=== PATIENT | male | born 1995 | race Two or more races ===

== ENCOUNTER 2019-07-01 02:04 | Emergency (ER) | payer OTHER ==
[~2019-07-01] VITALS: Ht 193 cm; Wt 127.0 kg
--- NOTE | 2019-07-01 02:11 | NUR ---
PT BIB [facility] WITH A C/O ABD PAIN WITH N/V. PT WAS TRIAGED AND TAKEN TO ER2. PT WAS PLACED ON THE MONITOR AND CONTINUOUS PULSE OX. PT IS GROANING AND SCREAMING WITH PAIN. PT STATED THAT HE HAD A HX OF ULCERS, BUT IS NO LONGER TAKING MEDICATION FOR IT.
[2019-07-01] MEDS ORDERED: ONDANSETRON HCL/PF 4 MG/2 ML VIAL ONE (02:15)
--- NOTE | 2019-07-01 02:24 | NUR ---
PT REC'D MEDICATION ORDERED.
[2019-07-01] MEDS ORDERED: HYDROMORPHONE 1 MG/1 ML DISP.SYRIN ONE (02:28)
[2019-07-01 02:29] LABS: BASOPHILS # (AUTO) 0.1 /CMM (0.0-0.2); BASOPHILS % (AUTO) 0.7 % (0.0-2.0); EOSINOPHILS % (AUTO) 0.2 % (0.0-6.0); HEMATOCRIT 42 % (39-51); LYMPHOCYTES # (AUTO) 1.5 /CMM (0.8-4.8); LYMPHOCYTES % (AUTO) 15.3 % (20.0-44.0); MEAN CORPUSCULAR HGB CONC 34 g/dl (31.0-36.0); MEAN CORPUSCULAR VOLUME 85 fL (80-96); MONOCYTES # (AUTO) 0.4 /CMM (0.1-1.30); MONOCYTES % (AUTO) 3.7 % (2.0-12.0); NEUTROPHILS # (AUTO) 7.9 /CMM (1.8-8.9); NEUTROPHILS % (AUTO) 80.1 % (43.0-81.0); PLATELET COUNT (AUTO) 278 /CMM (150-450); RED BLOOD CELL COUNT(AUTO) 4.89 MIL/uL (4.5-6.0); WHITE BLOOD COUNT (AUTO) 9.9 K/uL (4.3-11.0)
[2019-07-01] MEDS ORDERED: ONDANSETRON HCL/PF 4 MG/2 ML VIAL IVP ONE (02:30)
[2019-07-01] MEDS ORDERED: HYDROMORPHONE 1 MG/1 ML DISP.SYRIN IV ONE (02:30)
[2019-07-01] MEDS ORDERED: IV NS 0.9% 1,000 ML BAG IV ONE ×2 (02:30)
--- NOTE | 2019-07-01 02:30 | NUR ---
PT VOMITTED APPROX 300 ML EMESIS.
--- NOTE | 2019-07-01 02:35 | NUR ---
[facility] in ED - 07/01/19 at 0309 by [email or web address] PT LEFT FOR CT VIA SANIYA.
--- NOTE | 2019-07-01 02:45 | NUR ---
PT LEFT FOR CT VIA GURNEY.
[2019-07-01 02:46] LABS: BILIRUBIN,DIRECT 0.1 mg/dL (0.0-0.2); BILIRUBIN,TOTAL 0.4 mg/dL (0.2-1.0); CALCIUM, SERUM 9.2 mg/dL (8.5-10.1); CREATININE 1.2 mg/dL (0.6-1.3); POTASSIUM 3.5 mmol/L (3.5-5.1); TOTAL PROTEIN, SERUM 8.3 g/dL (6.4-8.2)
--- NOTE | 2019-07-01 03:08 | NUR ---
PT RETURNED FROM CT.
--- NOTE | 2019-07-01 04:06 | NUR ---
IV removed. Catheter intact and site benign. Pressure and 4x4 applied to site. No bleeding noted. Patient discharged to home in stable condition. Written and verbal after care instructions given. Patient verbalizes understanding of instruction AND RX. PT AMBULATED TO THE BATHROOM WITH A STEADY GAIT. VSS. PT CALLED [facility] TO HAVE [facility] SEND AN [facility] TO PICK HIM UP.
--- NOTE | 2019-07-01 04:16 | NUR ---
PT IS WAITING IN THE LOBBY FOR P/U.
[2019-07-01 04:17] VITALS: BP 153/84
== END 2019-07-01 04:18 | disposition home or self-care (01) ==
LOC: ER 02:05
DX: R10.13 Epigastric pain (principal); R11.2 Nausea with vomiting, unspecified; F17.200 Nicotine dependence, unspecified, uncomplicated
CPT/HCPCS: 36415; 74176; 80048; 80076; 83690; 85025; 96361; 96374; 96375; 99284; J1170; J2405; J7030

== ENCOUNTER 2019-07-04 07:59 | Emergency (ER) | payer OTHER ==
[~2019-07-04] VITALS: Ht 193 cm; Wt 137.4 kg
--- NOTE | 2019-07-04 08:15 | NUR ---
PT [id number] FROM [facility] C/O ABDOMINAL PIAN, CONSTIPATION X 3 DAYS, PT IS AAOX4, NOT IN RESPIRATORY DISTRESS, HOOKED TO MONITOR, KEPT RESTED AND COMFORTABLE, WILL CONTINUE TO MONITOR.
--- NOTE | 2019-07-04 08:20 | NUR ---
IV LINE ESTABLISHED, BLOOD DRAWN AND SENT TO LAB.
--- NOTE | 2019-07-04 08:24 | NUR ---
SEEN AND EXAMINED BY
[2019-07-04] MEDS ORDERED: FAMOTIDINE/PF INJ 20 MG/2 ML VIAL IV ONE ×2 (08:28→08:30)
[2019-07-04] MEDS ORDERED: LIDOCAINE VISCOUS 2% UD 15 ML UDC ONE (08:28)
[2019-07-04] MEDS ORDERED: MAG HYDROX/AL HYDROX/SIMETH 30 ML UDC ONE (08:28)
[2019-07-04] MEDS ORDERED: LIDOCAINE VISCOUS 2% UD 15 ML UDC MM ONE (08:30)
[2019-07-04] MEDS ORDERED: IV NS 0.9% 1,000 ML BAG IV ONE (08:30)
[2019-07-04] MEDS ORDERED: MAG HYDROX/AL HYDROX/SIMETH 30 ML UDC PO ONE (08:30)
[2019-07-04 08:42] LABS: BASOPHILS # (AUTO) 0.1 /CMM (0.0-0.2); EOSINOPHILS % (AUTO) 0.8 % (0.0-6.0); HEMATOCRIT 40 % (39-51); HEMOGLOBIN 13.6 g/dL (13.5-17.5); LYMPHOCYTES # (AUTO) 1.3 /CMM (0.8-4.8); LYMPHOCYTES % (AUTO) 20.9 % (20.0-44.0); MEAN CORPUSCULAR HGB CONC 34 g/dl (31.0-36.0); MEAN CORPUSCULAR VOLUME 86 fL (80-96); MONOCYTES # (AUTO) 0.4 /CMM (0.1-1.30); MONOCYTES % (AUTO) 6.9 % (2.0-12.0); NEUTROPHILS # (AUTO) 4.3 /CMM (1.8-8.9); NEUTROPHILS % (AUTO) 70.4 % (43.0-81.0); PLATELET COUNT (AUTO) 264 /CMM (150-450); RED BLOOD CELL COUNT(AUTO) 4.67 MIL/uL (4.5-6.0); WHITE BLOOD COUNT (AUTO) 6.2 K/uL (4.3-11.0)
[2019-07-04] MEDS ORDERED: KETOROLAC TROMETHAMINE INJ 30 MG/ML VIAL ONE (08:54)
[2019-07-04 08:59] LABS: ALBUMIN 3.9 g/dL (3.4-5.0); BILIRUBIN,TOTAL 0.2 mg/dL (0.2-1.0); CALCIUM, SERUM 9.1 mg/dL (8.5-10.1); POTASSIUM 3.6 mmol/L (3.5-5.1)
[2019-07-04] MEDS ORDERED: KETOROLAC TROMETHAMINE INJ 30 MG/ML VIAL IV ONE ×2 (09:00→09:30)
[2019-07-04 09:47] VITALS: BP 133/72
--- NOTE | 2019-07-04 09:47 | NUR ---
IV removed. Catheter intact and site benign. Pressure and 4x4 applied to site. No bleeding noted. Patient discharged to home in stable condition. Written and verbal after care instructions given. Patient verbalizes understanding of instruction.
== END 2019-07-04 09:48 | disposition home or self-care (01) ==
LOC: ER 08:13
DX: K25.9 Gastric ulcer, unspecified as acute or chronic, without hemorrhage or perforation (principal); F17.200 Nicotine dependence, unspecified, uncomplicated
CPT/HCPCS: 36415; 80048; 80076; 83690; 85025; 96374; 96375; 99283; J1885; J3490; J7030